=== PATIENT | male | born 1990 | race Caucasian/White ===

== ENCOUNTER 2017-04-04 14:23 | Emergency (ER) | payer OTHER ==
--- NOTE | 2017-04-04 15:39 | DIAGNOSTIC IMAGING REPORT ---
PROCEDURE: XR ABD SERIES 2V ABD/1V CHEST INDICATION: ABDOMINAL PAIN TECHNIQUE: Two views of the abdomen and a single view of the chest. COMPARISON: None. FINDINGS: Abdomen: No free intraperitoneal air. Nonspecific, nonobstructive bowel gas pattern. No suspicious mass, mass effect, or calcifications. The visible osseous structures are intact. Chest: The cardiomediastinal contour is normal. No central vascular congestion. Clear lungs. No effusion or pneumothorax. Intact osseous structures. IMPRESSION: 1. Normal abdomen. 2. Normal chest.
--- NOTE | 2017-04-04 16:07 | ED NURSING NOTES ---
Clinical Report - Nurses [facility] [address] [address] 04/04/2017 14:23 Patient: SOPHIE TAN TRIAGE Triage time 1440. Acuity: LEVEL 3. Chief Complaint: ABDOMINAL PAIN. Alert. No acute distress. (appears in severe pain, shaking). --14:49 Tatum Broderick 14:45 04/04/17. BP: 151/91. HR: 83. RR: 20. O2 saturation: 100%. Temp: 97.6 F. Pain level now 9/10. --14:49 Tatum Broderick. Weight: 76.2 kg. Height/Length: 68 inches. BMI: 25.5. --14:44 Tatum Broderick. Medications None. --14:47 Tatum Broderick. Allergies No Known Drug Allergy. --14:47 Tatum Broderick. History Arrived by private vehicle. Historian: patient. Accompanied by spouse. This is a new problem and onset was abrupt. Worsened while participating in light activity and coughing. Symptoms are constant and still present (2 days ago). ( Tuesday began having sharp right soided pain just up under ribs, sts hurt with deep breath only, now pain is constant and severe, denies any other sxs). Treatment BLADE CHANGER: None. SOCIAL HX: Never smoker. Occasional alcohol use. History of drug use: marijuana. --14:49 Tatum Broderick. PROBLEMS: Proctitis. --14:47 Tatum Broderick. Interventions ID band on patient. To treatment room. --14:49 Tatum Broderick. PHYSICAL ASSESSMENT Ambulatory to room. GENERAL / NEURO / PSYCH: Alert. Oriented X 4. Appears in pain and in distress. HEENT: Mucous membranes are pink. RESPIRATORY: Respirations not labored. Breath sounds within normal limits. CVS: Normal sinus rhythm noted. Capillary refill less than 2 seconds. GI / : Abdomen soft. Abdominal tenderness in the right upper quadrant. Guarding present. Bowel sounds within normal limits. SKIN: Skin is warm and dry. --14:49 Tatum Broderick. NURSING PROGRESS NOTES Reassurance given. Call light placed in reach. Side rails up x 1. Bed placed in lowest position. Brakes of bed on. Patient ready for evaluation- chart flagged. --14:50 Tatum Broderick 15:04 04/04/2017 Site #1 started via IV in the right antecubital space with an 20g angiocath, with aseptic technique and good blood return; one attempt. Blood drawn: rainbow set. Labeled in the presence of the patient and sent to the lab. Saline lock flushed with 10 mL saline. --15:04 Tatum Broderick 15:11 04/04/2017 Dilaudid (HYDROmorphone HCl PF) IVP 0.5 mg given. via site #1. Allergies verified, confirmed 5 rights and sedative warning given to the patient and patient's family. IV patency established. IV site checked: no pain, redness, or swelling. IV flushed thoroughly pre- and post-medication administration. IVP given by RN. --15:11 Tatum Broderick EKG time: (15:24). EKG was performed by a tech and shown to the ED physician. --15:28 Amy Madison 16:00 04/04/2017 Valium (Diazepam) IVP 2 mg given. via site #1. 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 IV patency established. IV site checked: no pain, redness, or swelling. IV flushed thoroughly pre- and post-medication administration. IVP given by RN. --16:00 Tatum Broderick Reassessment after medication administered. He is resting quietly and has had no adverse reaction. Overall patient status is improved- he states feels better. --16:29 Tatum Broderick. DISPOSITION / DISCHARGE Departure time: 1628. Condition at departure: improved and stable. No learning barriers present. Discharge instructions provided and reviewed with the patient and spouse. Reviewed medication(s). Work note given. Patient and spouse verbalized understanding. Written instructions provided in Yi. The patient was discharged by the physician acute care certified nursing assistant. He was discharged home and accompanied by spouse. He left the Emergency Department ambulatory and via private vehicle. Spouse driving. --16:30 Tatum Broderick 16:28 04/04/17. BP: 138/70. HR: 72. RR: 16. O2 saturation: 98%. Pain level now 5/10. --16:30 Tatum Broderick 16:30 04/04/2017 Site #1 removed upon discharge. Catheter intact. Pressure dressing applied. --16:31 Tatum Broderick. Locked/Released at 04/04/2017 16:31 by Tatum Broderick,
--- NOTE | 2017-04-04 16:07 | ED NURSING NOTES ---
Clinical Report - Nurses [facility] [address] [place] [address] 04/04/2017 14:23 Patient: SOPHIE TAN TRIAGE Triage time 1440. Acuity: LEVEL 3. Chief Complaint: ABDOMINAL PAIN. Alert. No acute distress. (appears in severe pain, shaking). --14:49 Tatum Broderick 14:45 04/04/17. BP: 151/91. HR: 83. RR: 20. O2 saturation: 100%. Temp: 97.6 F. Pain level now 9/10. --14:49 Tatum Broderick. Weight: 76.2 kg. Height/Length: 68 inches. BMI: 25.5. --14:44 Tatum Broderick. Medications None. --14:47 Tatum Broderick. Allergies No Known Drug Allergy. --14:47 Tatum Broderick. History Arrived by private vehicle. Historian: patient. Accompanied by spouse. This is a new problem and onset was abrupt. Worsened while participating in light activity and coughing. Symptoms are constant and still present (2 days ago). ( Tuesday began having sharp right soided pain just up under ribs, sts hurt with deep breath only, now pain is constant and severe, denies any other sxs). Treatment TAX AGENT: None. SOCIAL HX: Never smoker. Occasional alcohol use. History of drug use: marijuana. --14:49 Tatum Broderick. PROBLEMS: Proctitis. --14:47 Tatum Broderick. Interventions ID band on patient. To treatment room. --14:49 Tatum Broderick. PHYSICAL ASSESSMENT Ambulatory to room. GENERAL / NEURO / PSYCH: Alert. Oriented X 4. Appears in pain and in distress. HEENT: Mucous membranes are pink. RESPIRATORY: Respirations not labored. Breath sounds within normal limits. CVS: Normal sinus rhythm noted. Capillary refill less than 2 seconds. GI / : Abdomen soft. Abdominal tenderness in the right upper quadrant. Guarding present. Bowel sounds within normal limits. SKIN: Skin is warm and dry. --14:49 Tatum Broderick. NURSING PROGRESS NOTES Reassurance given. Call light placed in reach. Side rails up x 1. Bed placed in lowest position. Brakes of bed on. Patient ready for evaluation- chart flagged. --14:50 Tatum Broderick 15:04 04/04/2017 Site #1 started via IV in the right antecubital space with an 20g angiocath, with aseptic technique and good blood return; one attempt. Blood drawn: rainbow set. Labeled in the presence of the patient and sent to the lab. Saline lock flushed with 10 mL saline. --15:04 Tatum Broderick 15:11 04/04/2017 Dilaudid (HYDROmorphone HCl PF) IVP 0.5 mg given. via site #1. Allergies verified, confirmed 5 rights and sedative warning given to the patient and patient's family. IV patency established. IV site checked: no pain, redness, or swelling. IV flushed thoroughly pre- and post-medication administration. IVP given by RN. --15:11 Tatum Broderick EKG time: (15:24). EKG was performed by a tech and shown to the ED physician. --15:28 Amy Madison 16:00 04/04/2017 Valium (Diazepam) IVP 2 mg given. via site #1. 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 IV patency established. IV site checked: no pain, redness, or swelling. IV flushed thoroughly pre- and post-medication administration. IVP given by RN. --16:00 Tatum Broderick Reassessment after medication administered. He is resting quietly and has had no adverse reaction. Overall patient status is improved- he states feels better. --16:29 Tatum Broderick. DISPOSITION / DISCHARGE Departure time: 1628. Condition at departure: improved and stable. No learning barriers present. Discharge instructions provided and reviewed with the patient and spouse. Reviewed medication(s). Work note given. Patient and spouse verbalized understanding. Written instructions provided in Faroese. The patient was discharged by the physician telecom assistant. He was discharged home and accompanied by spouse. He left the Emergency Department ambulatory and via private vehicle. Spouse driving. --16:30 Tatum Broderick 16:28 04/04/17. BP: 138/70. HR: 72. RR: 16. O2 saturation: 98%. Pain level now 5/10. --16:30 Tatum Broderick 16:30 04/04/2017 Site #1 removed upon discharge. Catheter intact. Pressure dressing applied. --16:31 Tatum Broderick. Locked/Released at 04/04/2017 16:31 by Tatum Broderick,
--- NOTE | 2017-04-04 16:07 | ED CLINICAL REPORT ---
Clinical Report - Physicians/Mid Levels [facility] [address] [place] [address] 04/04/2017 14:23 Patient: SOPHIE TAN Time Seen: 1500May 2016. Arrived- By private vehicle. Historian- patient. HISTORY OF PRESENT ILLNESS Chief Complaint: FLANK PAIN. This started 4 days. No nausea, vomiting or diarrhea. (Right-sided flank pain worsening over the last 2 days. Pain worsens with any movement, deep inspiration. He denies any injury. Patient has been lifting heavy things. Denies any nausea or vomiting. Denies history of similar pain. Pain worsens with movement. No chest pain. No radiation of pain. No history of similar.). REVIEW OF SYSTEMS No constipation, black stools, hematemesis, difficulty with urination or pain with urination. No urinary frequency, fever, headache, blurred vision or chest pain. All systems otherwise negative, except as recorded above. PAST HISTORY Problems: Proctitis. Abdominal Pain. Medications: None. Allergies: No Known Drug Allergy. SOCIAL HISTORY Never smoker. Alcohol use. History of drug use: marijuana. Not an IV drug user. ADDITIONAL NOTES The nursing notes have been reviewed. PHYSICAL EXAM Vital Signs: 04/04/2017 14:45 BP: 151/91. HR: 83. RR: 20. O2 saturation: 100%. Temp: 97.6 F. Appearance: Alert. No acute distress. ENT: Ears normal. CVS: Normal heart rate and rhythm. Heart sounds normal. Respiratory: No respiratory distress. Breath sounds normal. No decreased air movement. Abdomen: Soft and nontender. Bowel sounds normal. No abdominal tenderness. Back: Normal inspection. No CVA tenderness. Skin: Skin warm. Normal skin color. Neuro: Oriented X 3. LABS, X-RAYS, AND EKG EKG: EKG time: (1524). No acute process. No acute ischemia. Normal EKG. Rate: 76. Normal P waves. Normal JOHN. Normal ST and T waves and QT. The study has been interpreted contemporaneously. The study has been independently viewed by me. The EKG appears to be a good tracing. Laboratory Tests: UA-Culture if indicated: (OSIEL: 04/04/2017 15:10) ( [facility] [place] [place] 04/04/2017 15:24) Final results Test Result Flag Units (Reference) URINE COLOR YELLOW URINE APPEARANCE CLEAR URINE GLUCOSE NEGATIVE (NEGATIVE) URINE BILIRUBIN NEGATIVE (NEGATIVE) URINE KETONE NEGATIVE (NEGATIVE) URINE SPECIFIC GRAVITY 1.015 (1.010-1.030) URINE PH 6.0 (5.0-8.0) URINE PROTEIN NEGATIVE (NEGATIVE) URINE UROBILINOGEN 0.2 EU/dL (0.2-1.0) URINE NITRITE NEGATIVE (NEGATIVE) URINE BLOOD NEGATIVE (NEGATIVE) URINE LEUK ESTERASE NEGATIVE (NEGATIVE) URINE RBC 0-1 rbc/hpf (0-1) URINE WBC 1-3 wbc/hpf (0-1) URINE EPITHELIAL CELLS 0-1 EPI/hpf (0-5) URINE BACTERIA NONE SEEN (NONE SEEN) URINE COMMENT CULT NOT INDICATED URINE CULTURES ARE SET-UP BASED ON THE FOLLOWING CRITERIA:POSITIVE NITRITEPOSITIVE LEUKOCYTE ESTERASEGREATER THAN 10 WHITE BLOOD CELLSMODERATE (2+) OR GREATER BACTERIA CBC w Diff: (OSIEL: 04/04/2017 15:00) ( [facility] [place] [place] 04/04/2017 15:25) Final results Test Result Flag Units (Reference) WHITE BLOOD COUNT 8.1 K/uL (4.5-11.5) RED BLOOD COUNT 4.92 M/uL (4.50-5.90) HEMOGLOBIN 15.0 gm/dL (13.5-17.5) HEMATOCRIT 44.9 % (41.0-53.0) MEAN CELL VOLUME 91 fL (80-100) MEAN CORPUSCULAR HGB 31 pg (26-34) MEAN CORPUSCULAR HGB CONC 34 g/dL (31-37) RED CELL DISTRIBUTION WIDTH 13.2 % (11.6-14.8) PLATELET COUNT 224 K/uL (150-400) NEUTROPHIL % 72.3 % (50-75) LYMPH % 17.1 L % (25-40) MONO % 7.2 % (3-14) EOSINOPHIL % 2.6 % (0-4) BASOPHIL % 0.8 % (0-2) CHEM 13 PANEL: (OSIEL: 04/04/2017 15:00) ( MsgRcvd 04/04/2017 15:27) Final results Test Result Flag Units (Reference) GLUCOSE 96 mg/dL (70-110) BUN 18 mg/dL (7-18) CREATININE 0.9 mg/dL (0.6-1.3) Estimated GFR >60 mL/min Estimated GFR- >60 mL/min Note: Persistent reduction over 3 months in eGFR<60 mL/min/1.73 m2 defines CKD. Patients with eGFR values>=60 mL/min/1.73 m2 may also have CKD if evidence ofpersistent proteinuria. Additional information may be foundat www.kidney.org. SODIUM 144 mmol/L (136-145) POTASSIUM 3.6 mmol/L (3.5-5.1) CHLORIDE 105 mmol/L (98-107) CARBON DIOXIDE 28 mmol/L (21-32) CALCIUM 8.7 mg/dL (8.5-10.1) TOTAL PROTEIN 7.8 g/dL (6.4-8.2) ALBUMIN 4.4 g/dL (3.3-5.0) BILIRUBIN, TOTAL 0.5 mg/dL (0.0-1.0) ALKALINE PHOSPHATASE 67 U/L (46-116) AST (SGOT) 22 U/L (15-37) ALT (SGPT) 30 U/L (12-78) MAGNESIUM 2.1 mg/dL (1.8-2.4) CPK 119 U/L (24-260) TROPONIN I <0.05 ng/mL (0.00-1.5) TROPONIN REFERENCE RANGE:<0.1 NEGATIVE0.1-1.5 INDETERMINANT>1.5 POSITIVE . Note - Tests: (cxr/ abd: IMPRESSION: 1. Normal abdomen. 2. Normal chest. Electronically Final signed by:Zarina Miranda MD 04/04/2017 3:39:42 PM). PROGRESS AND PROCEDURES Course of Care: patient is not worsened or improved by palpation, however is worsened by movement and activity especially from supine to sitting position, at this time negative workup which is extensively and chest x-ray, EKG. Negative Saini sign. No signs of infectious process. Patient with no cough. PE less likely. 04/04/2017 16:28 BP: 138/70. HR: 72. RR: 16. O2 saturation: 98%. Patient is stable. Patient/family counseled. Differential Diagnosis: I considered muscle strain, costochondritis, pleurisy, epidemic pleurodynia, intercostal neuritis, herpes zoster, myocardial infarction, intermediate coronary syndrome, aortic dissection, pulmonary embolism, gastroesophageal reflux disease and esophagitis as a possible cause of chest pain in this patient. This is a partial list of diagnoses considered. Disposition: Discharged. CLINICAL IMPRESSION Abdominal muscle strain INSTRUCTIONS No strenuous activity. Rest. Do not work for three days. Drink plenty of fluids. Prescription Medications: Motrin 800 mg tablets: take 1 tablet orally every 8 hours for 3 days, as needed for pain. Dispense ten (10). No refill. Substitution is permissible. Valium 2 mg tablets: take 1 tablet orally every 8 hours for 3 days as needed for muscle spasm. Dispense fifteen (15). No refill. Substitution is permissible. Follow-up: Follow up with your doctor in three days. (Electronically signed by Dennise Adkins P.A.-C 04/04/2017 16:55)
--- NOTE | 2017-04-04 16:08 | ED ORDER SUMMARY ---
..... Patient: SOPHIE TAN OrderSheet [facility] VisitID: [id number] [address] [place] [address] 26y, M Registration Date/Time: 04/04/2017 ORDER SHEET Weight: 76.2 kg Allergies: No Known Drug Allergy GENERAL ORDERS: CBC w Diff Urgent (14:50 04/04/2017 EBonham per protocol) (Ack 14:52 KHoerner) (Cancelled: Other14:59 EKoroleva P.A.-C) CMP Urgent (14:50 04/04/2017 EBonham per protocol) (Ack 14:52 KHoerner) (Cancelled: Other14:59 EKoroleva P.A.-C) UA-Culture if indicated Urgent (14:50 04/04/2017 EBonham per protocol) (Ack 14:52 KHoerner) (15:10 EBonham) Cardiac Panel Stat (14:59 04/04/2017 EKoroleva P.A.-C) (15:04 EBon) EKG - ER Stat (14:59 04/04/2017 EKoroleva P.A.-C) (15:21 KHoerner) Abd Series 2V Abd/1V Chest Urgent (15:03 04/04/2017 EKoroleva P.A.-C) (Ack 15:09 KHoerner) (16:01 [facility]) MEDICATION ORDERS: IV FLUIDS: IV Saline Lock (14:50 04/04/2017 EBonham per protocol) (15:04 EBonham) IV Saline Lock (14:59 04/04/2017 EKoroleva P.A.-C) (Cancelled: Other15:03 EKoroleva P.A.-C) Dilaudid IV 0.5 mg (HIGH ALERT MEDICATION, NOW) (15:03 04/04/2017 EKoroleva P.A.-C) (15:11 EBonham) Valium IV 2 mg (HIGH ALERT MEDICATION, NOW) (15:58 04/04/2017 EKoroleva P.A.-C) (16:00 [facility] ORDER SHEET NOTES: [Electronically signed by Tatum Broderick (16:31 04/04/2017)] [Electronically signed by Dennise Adkins P.A.-C (16:55 04/04/2017)] [Electronically locked/signed by Tatum Broderick (16:31 04/04/2017)]
--- NOTE | 2017-04-04 16:08 | ED ORDER SUMMARY ---
..... Patient: SOPHEI TAN OrderSheet [facility] VisitID: [id number] [address] [place] [address] 26y, M Registration Date/Time: 04/04/2017 ORDER SHEET Weight: 76.2 kg Allergies: No Known Drug Allergy GENERAL ORDERS: CBC w Diff Urgent (14:50 04/04/2017 EBonham per protocol) (Ack 14:52 KHoerner) (Cancelled: Other14:59 EKoroleva P.A.-C) CMP Urgent (14:50 04/04/2017 EBonham per protocol) (Ack 14:52 KHoerner) (Cancelled: Other14:59 EKoroleva P.A.-C) UA-Culture if indicated Urgent (14:50 04/04/2017 EBonham per protocol) (Ack 14:52 KHoerner) (15:10 EBonham) Cardiac Panel Stat (14:59 04/04/2017 EKoroleva P.A.-C) (15:04 EBon) EKG - ER Stat (14:59 04/04/2017 EKoroleva P.A.-C) (15:21 KHoerner) Abd Series 2V Abd/1V Chest Urgent (15:03 04/04/2017 EKoroleva P.A.-C) (Ack 15:09 KHoerner) (16:01 [facility]) MEDICATION ORDERS: IV FLUIDS: IV Saline Lock (14:50 04/04/2017 EBonham per protocol) (15:04 EBonham) IV Saline Lock (14:59 04/04/2017 EKoroleva P.A.-C) (Cancelled: Other15:03 EKoroleva P.A.-C) Dilaudid IV 0.5 mg (HIGH ALERT MEDICATION, NOW) (15:03 04/04/2017 EKoroleva P.A.-C) (15:11 EBonham) Valium IV 2 mg (HIGH ALERT MEDICATION, NOW) (15:58 04/04/2017 EKoroleva P.A.-C) (16:00 [facility]) ORDER SHEET NOTES: [Electronically signed by Tatum Broderick (16:31 04/04/2017)] [Electronically signed by Dennise Adkins P.A.-C (16:55 04/04/2017)] [Electronically locked/signed by Tatum Broderick (16:31 04/04/2017)]
--- NOTE | 2017-04-04 16:55 | ED MAR SUMMARY ---
..... Medication Administration Record [facility] [address] [place] [address] Patient: SOPHIE TAN Visit ID: [id number] 26y, M Weight: 76.2 kg Height/Length: 68 in BMI: 25.5 ALLERGIES: No Known Drug Allergy Given 15:11 04/04/2017 Tatum Broderick, Medication Administered: DILAUDID [IVP] (HYDROMORPHONE HCL PF), Dose: 0.5 mg IVP, Site: #1 right AC. Medication Ordered: Dilaudid IV 0.5 mg (HIGH ALERT MEDICATION, NOW). Given 16:00 04/04/2017 Tatum Broderick, Medication Administered: VALIUM [IVP] (DIAZEPAM), Dose: 2 mg IVP, Site: #1 right AC. Medication Ordered: Valium IV 2 mg (HIGH ALERT MEDICATION, NOW).
--- NOTE | 2017-04-04 16:55 | ED DISCHARGE INSTRUCTIONS ---
Patient: SOPHIE TAN General Instructions [facility] VisitID: [id number] [address] [place] [address] 26y, M Registration Date/Time: 04/04/2017 Abdominal muscle strain INSTRUCTIONS No strenuous activity. Rest. Do not work for three days. Drink plenty of fluids. Prescription Medications: Motrin 800 mg tablets: take 1 tablet orally every 8 hours for 3 days, as needed for pain. Dispense ten (10). No refill. Substitution is permissible. Valium 2 mg tablets: take 1 tablet orally every 8 hours for 3 days as needed for muscle spasm. Dispense fifteen (15). No refill. Substitution is permissible. Follow-up: Follow up with your doctor in three days. ADDITIONAL INFORMATION Muscle Strain, Abdomen A muscle strain is a stretching and tearing of muscle fibers. The abdomen is protected by a thick wall of muscle in the front and sides. These muscles help with twisting and bending forward. Repeated coughing, lifting heavy objects or sudden jerking movements can sometimes cause a muscle strain in the abdomen. This causes pain that is worse when you move. The area may also feel tender or be swollen and bruised. Home Care: Make an ice pack (ice cubes in a plastic bag, wrapped in a towel) and apply over the injured area for 20 minutes every 1-2 hours the first day. You should continue with ice packs 3-4 times a day for the next two days. Continue the use of ice packs for relief of pain and swelling as needed. You may use acetaminophen (Tylenol) or ibuprofen (Motrin, Advil) to control pain, unless another pain medicine was prescribed. [NOTE: If you have liver or kidney disease, a stomach ulcer or GI bleeding, talk with your doctor before using these medicines.] Follow Up with your doctor or this facility if you are not improving within the next five days. Get Prompt Medical Attention if any of the following occur: Pain increases or moves to the right lower abdomen (just below the waistline) Fever of 100.4 F (38 C) or higher, or as directed by your healthcare provider Vomiting Severe abdominal pain that spreads to the back or toward the groin Dizziness, weakness or fainting Blood in the urine Unexpected vaginal bleeding (for women) [place] Diet A bland diet is used for patients with an upset stomach. It consists of foods that are mild and easy to digest. It is better to eat small frequent meals rather than three large meals a day. BEVERAGES OK: Fruit juices, non-caffeinated teas and coffee, non-carbonated carlton AVOID: Carbonated beverage, caffeinated tea and coffee, all alcoholic beverages BREAD OK: Refined white, wheat or rye bread, ofelia or soda crackers, Whit toast, plain rolls, bagels AVOID: Whole-grain bread CEREAL OK: Refined cereals: cooked or ready to eat AVOID: Whole grain cereals and granola, or those containing bran, seeds or nuts DESSERTS OK: Peanut butter and all others except those to "avoid" AVOID: Chocolate, cocoa, coconut, popcorn, nuts, seeds, jam, marmalade FRUITS OK: Canned, cooked, frozen or fresh fruits without seeds or tough skin AVOID: Olives, skin and seeds of fruit MEATS OK: All fresh or preserved meat, fish and fowl AVOID: Any that are prepared with those spices to "avoid" CHEESE & EGGS OK: Eggs, cottage cheese, cream cheese, other cheeses AVOID: All cheeses made with those spices to "avoid" POTATOES & PASTA OK: Potato, rice, macaroni, noodles, spaghetti AVOID: None SOUPS OK: All soups without heavy seasoning AVOID: Soups made with those spices to "avoid" VEGETABLES OK: Canned, cooked, fresh or frozen mildly flavored vegetables without seeds, skins or coarse fiber AVOID: Vegetables prepared with those spices to "avoid"; skin and seeds of vegetables and those with coarse fiber SPICES OK: Salt, lemon and [place] juice, vinegar, all extracts, andrez, cinnamon, thyme, mace, allspice, paprika AVOID: [place] powder, cloves, pepper, seed spices, garlic, gravy pickles, highly seasoned salad dressings Clear Liquid Diet Clear liquids are any liquid that you can see through as well as those that are very easy to digest. This is used while the body is recovering from irritation or infection of the stomach or intestinal tract. It may also be used before special procedures or surgery. This diet is to be used no more than three days. You may include the following items. Adults Adults should drink a total of 23 quarts of liquid per day. It may be easier to drink small frequent servings rather than a few large ones. Liquids can include: Fruit juices.Strained orange juice or lemonade (no pulp), apple, grape and cranberry juice, clear fruit drinks, sports drinks Beverages.Sport drinks, sodas, mineral water (plain or flavored), tea, black coffee, liquid gelatin (add twice the recommended amount of water) Soups.Clear broth, consomm, bouillon Desserts.Plain gelatin, popsicles, fruit juice bars Children Over 2 years old The following liquids are acceptable for children over age 2: Fruit juices.Strained orange juice or lemonade (no pulp), apple, grape and cranberry juice, clear fruit drinks Beverages. Sports drinks, sodas, mineral water (plain or flavored), tea, liquid gelatin (add twice the recommended amount of water) Soups. Clear broth, consomm, bouillon Desserts. Plain gelatin, popsicles, fruit juice bars Children under 2 years old Oral rehydration fluids such are available at drug stores and most grocery stores without a prescription. Diazepam Oral tablet What is this medicine? DIAZEPAM (dye AZ e mona) is a benzodiazepine. It is used to treat anxiety and nervousness. It also can help treat alcohol withdrawal, relax muscles, and treat certain types of seizures. How should I use this medicine? Take this medicine by mouth with a glass of water. Follow the directions on the prescription label. If this medicine upsets your stomach, take it with food or milk. Take your doses at regular intervals. Do not take your medicine more often than directed. If you have been taking this medicine regularly for some time, do not suddenly stop taking it. You must gradually reduce the dose or you may get severe side effects. Ask your doctor or health pediatric acute care unit nurse for advice. Even after you stop taking this medicine it can still affect your body for several days. Talk to your iron piler regarding the use of this medicine in children. Special care may be needed. What side effects may I notice from receiving this medicine? Side effects that you should report to your doctor or health pediatric acute care unit nurse as soon as possible: allergic reactions like skin rash, itching or hives, swelling of the face, lips, or tongue angry, confused, depressed, other mood changes breathing problems feeling faint or lightheaded, falls muscle cramps problems with balance, talking, walking restlessness tremors trouble passing urine or change in the amount of urine unusually weak or tired Side effects that usually do not require medical attention (report to your doctor or health pediatric acute care unit nurse if they continue or are bothersome): difficulty sleeping, nightmares dizziness, drowsiness, clumsiness, or unsteadiness, a hangover effect headache nausea, vomiting What may interact with this medicine? cimetidine grapefruit juice herbal or dietary supplements like kava kava, melatonin, [place]'s Wort, or valerian medicines for anxiety or sleeping problems, like alprazolam, lorazepam, or triazolam medicines for depression, mental problems or psychiatric disturbances medicines for HIV infection or AIDS prescription pain medicines rifampin, rifapentine, or rifabutin some medicines for seizures like carbamazepine, phenobarbital, phenytoin, or primidone What if I miss a dose? If you miss a dose, take it as soon as you can. If it is almost time for your next dose, take only that dose. Do not take double or extra doses. Where should I keep my medicine? Keep out of the reach of children. This medicine can be abused. Keep your medicine in a safe place to protect it from theft. Do not share this medicine with anyone. Selling or giving away this medicine is dangerous and against the law. Store at room temperature between 15 and 30 degrees C (59 and 86 degrees F). Protect from light. Keep container tightly closed. Throw away any unused medicine after the expiration date. What should I tell my health care provider before I take this medicine? They need to know if you have any of these conditions an alcohol or drug abuse problem bipolar disorder, depression, psychosis or other mental health condition glaucoma kidney or liver disease lung or breathing disease myasthenia gravis Parkinson's disease seizures or a history of seizures suicidal thoughts an unusual or allergic reaction to diazepam, other benzodiazepines, foods, dyes, or preservatives or trying to get breast-feeding What should I watch for while using this medicine? Visit your doctor or health pediatric acute care unit nurse for regular checks on your progress. Your body can become dependent on this medicine. Ask your doctor or health pediatric acute care unit nurse if you still need to take it. You may get drowsy or dizzy. Do not drive, use machinery, or do anything that needs mental alertness until you know how this medicine affects you. To reduce the risk of dizzy and fainting spells, do not stand or sit up quickly, especially if you are an older patient. Alcohol may increase dizziness and drowsiness. Avoid alcoholic drinks. Do not treat yourself for coughs, colds or allergies without asking your doctor or health pediatric acute care unit nurse for advice. Some ingredients can increase possible side effects. You have been given the following additional information: Muscle Strain, Abdomen Diet, [place] (Adult) Diet, Clear Liquid Diazepam Oral tablet No strenuous activity. Rest. Do not work for three days. (Electronically signed by Dennise Adkins P.A.-C 04/04/2017 16:55)
--- NOTE | 2017-04-04 16:55 | ED MAR SUMMARY ---
..... Medication Administration Record [facility] [address] [place] [address] Patient: SOPHIE TAN Visit ID: [id number] 26y, M Weight: 76.2 kg Height/Length: 68 in BMI: 25.5 ALLERGIES: No Known Drug Allergy Given 15:11 04/04/2017 Tatum Broderick, Medication Administered: DILAUDID [IVP] (HYDROMORPHONE HCL PF), Dose: 0.5 mg IVP, Site: #1 right AC. Medication Ordered: Dilaudid IV 0.5 mg (HIGH ALERT MEDICATION, NOW). Given 16:00 04/04/2017 Tatum Broderick, Medication Administered: VALIUM [IVP] (DIAZEPAM), Dose: 2 mg IVP, Site: #1 right AC. Medication Ordered: Valium IV 2 mg (HIGH ALERT MEDICATION, NOW).
--- NOTE | 2017-04-04 16:55 | ED MED RECONCILIATION SUMMARY ---
Patient: SOPHIE TAN Medication Reconciliation Report [facility] VisitID: [id number] [address] [place] [address] 26y, M Registration Date/Time: 04/04/2017 Weight: 76.2 kg Height/Length: 68 in. BMI: 25.5 ALLERGIES: No Known Drug Allergy The patient's Home Medications are listed below: NONE. The source(s) of the original Home Medication information: Not obtained. The following Medications were given to the patient in the Emergency Department: Dilaudid [IVP] IVP 0.5 mg, administered: 04/04/2017 3:11:00 PM Valium [IVP] IVP 2 mg, administered: 04/04/2017 4:00:00 PM The following Medications were prescribed to the patient: Motrin 800 mg tablets: take 1 tablet orally every 8 hours for 3 days, as needed for pain. Dispense ten (10). No refill. Substitution is permissible. -- Dennise Adkins P.ATherese Valium 2 mg tablets: take 1 tablet orally every 8 hours for 3 days as needed for muscle spasm. Dispense fifteen (15). No refill. Substitution is permissible. -- Dennise Adkins PCleoACleo-Isabella
--- NOTE | 2017-04-04 16:55 | ED MED RECONCILIATION SUMMARY ---
Patient: SOPHIE TAN Medication Reconciliation Report [facility] VisitID: [id number] [address] [place] [address] 26y, M Registration Date/Time: 04/04/2017 Weight: 76.2 kg Height/Length: 68 in. BMI: 25.5 ALLERGIES: No Known Drug Allergy The patient's Home Medications are listed below: NONE. The source(s) of the original Home Medication information: Not obtained. The following Medications were given to the patient in the Emergency Department: Dilaudid [IVP] IVP 0.5 mg, administered: 04/04/2017 3:11:00 PM Valium [IVP] IVP 2 mg, administered: 04/04/2017 4:00:00 PM The following Medications were prescribed to the patient: Motrin 800 mg tablets: take 1 tablet orally every 8 hours for 3 days, as needed for pain. Dispense ten (10). No refill. Substitution is permissible. -- Dennise Adkins P.AThreese Valium 2 mg tablets: take 1 tablet orally every 8 hours for 3 days as needed for muscle spasm. Dispense fifteen (15). No refill. Substitution is permissible. -- Dennise Adkins PCleoACleo-Isabella
--- NOTE | 2017-04-04 16:55 | ED DISCHARGE INSTRUCTIONS ---
Patient: SOPHIE TAN General Instructions [facility] VisitID: [id number] [address] [place] [address] 26y, M Registration Date/Time: 04/04/2017 Abdominal muscle strain INSTRUCTIONS No strenuous activity. Rest. Do not work for three days. Drink plenty of fluids. Prescription Medications: Motrin 800 mg tablets: take 1 tablet orally every 8 hours for 3 days, as needed for pain. Dispense ten (10). No refill. Substitution is permissible. Valium 2 mg tablets: take 1 tablet orally every 8 hours for 3 days as needed for muscle spasm. Dispense fifteen (15). No refill. Substitution is permissible. Follow-up: Follow up with your doctor in three days. ADDITIONAL INFORMATION Muscle Strain, Abdomen A muscle strain is a stretching and tearing of muscle fibers. The abdomen is protected by a thick wall of muscle in the front and sides. These muscles help with twisting and bending forward. Repeated coughing, lifting heavy objects or sudden jerking movements can sometimes cause a muscle strain in the abdomen. This causes pain that is worse when you move. The area may also feel tender or be swollen and bruised. Home Care: Make an ice pack (ice cubes in a plastic bag, wrapped in a towel) and apply over the injured area for 20 minutes every 1-2 hours the first day. You should continue with ice packs 3-4 times a day for the next two days. Continue the use of ice packs for relief of pain and swelling as needed. You may use acetaminophen (Tylenol) or ibuprofen (Motrin, Advil) to control pain, unless another pain medicine was prescribed. [NOTE: If you have liver or kidney disease, a stomach ulcer or GI bleeding, talk with your doctor before using these medicines.] Follow Up with your doctor or this facility if you are not improving within the next five days. Get Prompt Medical Attention if any of the following occur: Pain increases or moves to the right lower abdomen (just below the waistline) Fever of 100.4 F (38 C) or higher, or as directed by your healthcare provider Vomiting Severe abdominal pain that spreads to the back or toward the groin Dizziness, weakness or fainting Blood in the urine Unexpected vaginal bleeding (for women) [place] Diet A bland diet is used for patients with an upset stomach. It consists of foods that are mild and easy to digest. It is better to eat small frequent meals rather than three large meals a day. BEVERAGES OK: Fruit juices, non-caffeinated teas and coffee, non-carbonated [place] AVOID: Carbonated beverage, caffeinated tea and coffee, all alcoholic beverages BREAD OK: Refined white, wheat or rye bread, ofelia or soda crackers, Whit toast, plain rolls, bagels AVOID: Whole-grain bread CEREAL OK: Refined cereals: cooked or ready to eat AVOID: Whole grain cereals and granola, or those containing bran, seeds or nuts DESSERTS OK: Peanut butter and all others except those to "avoid" AVOID: Chocolate, cocoa, coconut, popcorn, nuts, seeds, jam, marmalade FRUITS OK: Canned, cooked, frozen or fresh fruits without seeds or tough skin AVOID: Olives, skin and seeds of fruit MEATS OK: All fresh or preserved meat, fish and fowl AVOID: Any that are prepared with those spices to "avoid" CHEESE & EGGS OK: Eggs, cottage cheese, cream cheese, other cheeses AVOID: All cheeses made with those spices to "avoid" POTATOES & PASTA OK: Potato, rice, macaroni, noodles, spaghetti AVOID: None SOUPS OK: All soups without heavy seasoning AVOID: Soups made with those spices to "avoid" VEGETABLES OK: Canned, cooked, fresh or frozen mildly flavored vegetables without seeds, skins or coarse fiber AVOID: Vegetables prepared with those spices to "avoid"; skin and seeds of vegetables and those with coarse fiber SPICES OK: Salt, lemon and [place] juice, vinegar, all extracts, andrez, cinnamon, thyme, mace, allspice, paprika AVOID: [place] powder, cloves, pepper, seed spices, garlic, gravy pickles, highly seasoned salad dressings Clear Liquid Diet Clear liquids are any liquid that you can see through as well as those that are very easy to digest. This is used while the body is recovering from irritation or infection of the stomach or intestinal tract. It may also be used before special procedures or surgery. This diet is to be used no more than three days. You may include the following items. Adults Adults should drink a total of 23 quarts of liquid per day. It may be easier to drink small frequent servings rather than a few large ones. Liquids can include: Fruit juices.Strained orange juice or lemonade (no pulp), apple, grape and cranberry juice, clear fruit drinks, sports drinks Beverages.Sport drinks, sodas, mineral water (plain or flavored), tea, black coffee, liquid gelatin (add twice the recommended amount of water) Soups.Clear broth, consomm, bouillon Desserts.Plain gelatin, popsicles, fruit juice bars Children Over 2 years old The following liquids are acceptable for children over age 2: Fruit juices.Strained orange juice or lemonade (no pulp), apple, grape and cranberry juice, clear fruit drinks Beverages. Sports drinks, sodas, mineral water (plain or flavored), tea, liquid gelatin (add twice the recommended amount of water) Soups. Clear broth, consomm, bouillon Desserts. Plain gelatin, popsicles, fruit juice bars Children under 2 years old Oral rehydration fluids such are available at drug stores and most grocery stores without a prescription. Diazepam Oral tablet What is this medicine? DIAZEPAM (dye AZ e mona) is a benzodiazepine. It is used to treat anxiety and nervousness. It also can help treat alcohol withdrawal, relax muscles, and treat certain types of seizures. How should I use this medicine? Take this medicine by mouth with a glass of water. Follow the directions on the prescription label. If this medicine upsets your stomach, take it with food or milk. Take your doses at regular intervals. Do not take your medicine more often than directed. If you have been taking this medicine regularly for some time, do not suddenly stop taking it. You must gradually reduce the dose or you may get severe side effects. Ask your doctor or health progressive care nurse for advice. Even after you stop taking this medicine it can still affect your body for several days. Talk to your assembler caterpillar spider regarding the use of this medicine in children. Special care may be needed. What side effects may I notice from receiving this medicine? Side effects that you should report to your doctor or health progressive care nurse as soon as possible: allergic reactions like skin rash, itching or hives, swelling of the face, lips, or tongue angry, confused, depressed, other mood changes breathing problems feeling faint or lightheaded, falls muscle cramps problems with balance, talking, walking restlessness tremors trouble passing urine or change in the amount of urine unusually weak or tired Side effects that usually do not require medical attention (report to your doctor or health progressive care nurse if they continue or are bothersome): difficulty sleeping, nightmares dizziness, drowsiness, clumsiness, or unsteadiness, a hangover effect headache nausea, vomiting What may interact with this medicine? cimetidine grapefruit juice herbal or dietary supplements like kava kava, melatonin, [place]'s Wort, or valerian medicines for anxiety or sleeping problems, like alprazolam, lorazepam, or triazolam medicines for depression, mental problems or psychiatric disturbances medicines for HIV infection or AIDS prescription pain medicines rifampin, rifapentine, or rifabutin some medicines for seizures like carbamazepine, phenobarbital, phenytoin, or primidone What if I miss a dose? If you miss a dose, take it as soon as you can. If it is almost time for your next dose, take only that dose. Do not take double or extra doses. Where should I keep my medicine? Keep out of the reach of children. This medicine can be abused. Keep your medicine in a safe place to protect it from theft. Do not share this medicine with anyone. Selling or giving away this medicine is dangerous and against the law. Store at room temperature between 15 and 30 degrees C (59 and 86 degrees F). Protect from light. Keep container tightly closed. Throw away any unused medicine after the expiration date. What should I tell my health care provider before I take this medicine? They need to know if you have any of these conditions an alcohol or drug abuse problem bipolar disorder, depression, psychosis or other mental health condition glaucoma kidney or liver disease lung or breathing disease myasthenia gravis Parkinson's disease seizures or a history of seizures suicidal thoughts an unusual or allergic reaction to diazepam, other benzodiazepines, foods, dyes, or preservatives or trying to get breast-feeding What should I watch for while using this medicine? Visit your doctor or health progressive care nurse for regular checks on your progress. Your body can become dependent on this medicine. Ask your doctor or health progressive care nurse if you still need to take it. You may get drowsy or dizzy. Do not drive, use machinery, or do anything that needs mental alertness until you know how this medicine affects you. To reduce the risk of dizzy and fainting spells, do not stand or sit up quickly, especially if you are an older patient. Alcohol may increase dizziness and drowsiness. Avoid alcoholic drinks. Do not treat yourself for coughs, colds or allergies without asking your doctor or health progressive care nurse for advice. Some ingredients can increase possible side effects. You have been given the following additional information: Muscle Strain, Abdomen Diet, [place] (Adult) Diet, Clear Liquid Diazepam Oral tablet No strenuous activity. Rest. Do not work for three days. (Electronically signed by Dennise Adkins P.A.-C 04/04/2017 16:55)
== END 2017-04-04 16:28 | disposition home or self-care (01) ==
LOC: ED SRH 14:23
DX: S39.011A Strain of muscle, fascia and tendon of abdomen, initial encounter (principal); X50.0XXA Overexertion from strenuous movement or load, initial encounter; Y93.89 Activity, other specified; Y99.9 Unspecified external cause status; Y92.9 Unspecified place or not applicable; F12.10 Cannabis abuse, uncomplicated
CPT/HCPCS: 90004; 90100; 90616; 92610; 92720; 95059